=== PATIENT | male | born 1955 | race Caucasian/White ===

== ENCOUNTER → 2017-03-13 | Outpatient (CLI) | payer OTHER ==
[~2017-03-13] MED LIST: B-121000 MC2; Bactrim Ds Tab1 EACH PO; CEPH500 PO; ERGO400; Fiber Tabs625 MG PO; Multiple Vitam1 EAC1; POLY500; VANCOMYCIN IV; VANCOMYCIN1.5 GM/250 IV; [UNRECOGNIZED DRUG - REMARK]; [UNRECOGNIZED DRUG - SUPPLY]
[2017-03-13 09:11] LABS: BASOPHILS ABSOLUTE AUTO 0.05 K/mm3 (0.00-0.23); BASOPHILS PERCENT AUTO 1 % (0-2); EOSINOPHILS PERCENT AUTO 4 % (0-6); Hematocrit 43.7 % (37.0-53.0); Hemoglobin 15.1 g/dL (13.5-17.5); IMMATURE GRAN ABSOLUTE AUTO 0.03 K/mm3 (0.00-0.10); IMMATURE GRAN PERCENT AUTO 0 % (0-1); LYMPHOCYTES ABSOLUTE AUTO 0.92 K/mm3 (0.84-5.20); LYMPHOCYTES PERCENT AUTO 13 % (21-46); MONOCYTES ABSOLUTE AUTO 0.54 K/mm3 (0.16-1.47); MONOCYTES PERCENT AUTO 8 % (4-13); Mean Corpuscular HGB 31.5 pg (26.0-34.0); Mean Corpuscular HGB Conc 34.6 g/dL (31.5-36.5); Mean Corpuscular Volume 91 fL (80-100); NEUTROPHILS ABSOLUTE AUTO 5.24 K/mm3 (1.96-9.15); NEUTROPHILS PERCENT AUTO 74 % (41-73); Platelet Count 184 K/mm3 (150-400); RDW Coefficient Variation 12.4 % (11.7-14.2); RDW Standard Deviation 40.7 fL (35.1-46.3); Red Blood Cell Count 4.79 M/mm3 (4.30-5.90); White Blood Cell Count 7.08 K/mm3 (4.00-11.30)
[2017-03-13 09:20] LABS: Alanine Aminotransfer (ALT/SGP 25 U/L (12-78); Albumin, Blood 3.7 g/dL (3.4-5.0); Albumin/Globulin Ratio 1.2 (0.8-1.8); Alk Phos 127 U/L (40-126); Anion Gap 9 mmol/L (6-16); Aspartate Aminotrans (AST/SGOT 18 U/L (12-37); Bilirubin, Total 0.6 mg/dL (0.1-1.0); Blood Urea Nitrogen 12 mg/dL (8-24); Bun/Creatinine Ratio 12.1 (12.0-20.0); CO2, Blood 25 mmol/L (21-32); Calcium, Blood 8.6 mg/dL (8.5-10.1); Chloride, Blood 107 mmol/L (98-108); Creatinine, Blood 0.99 mg/dL (0.60-1.20); Globulin, Blood 3.1 g/dL (2.2-4.0); Glomerular Filtration Rate >60 (60-); Glucose, Blood 116 mg/dL (70-99); Sodium, Blood 141 mmol/L (136-145); Total Protein, Blood 6.8 g/dL (6.4-8.2)
== END ==
LOC: LAB EV 09:05
PROVIDERS: Physician Assistant
DX: R10.9 Unspecified abdominal pain (principal)
CPT/HCPCS: 80053; 83690; 85025

== ENCOUNTER → 2018-06-29 | Outpatient (CLI) | payer OTHER ==
[2018-06-29 15:57] LABS: BASOPHILS ABSOLUTE AUTO 0.05 K/mm3 (0.00-0.23); BASOPHILS PERCENT AUTO 1 % (0-2); EOSINOPHILS PERCENT AUTO 4 % (0-6); Hematocrit 41.2 % (37.0-53.0); Hemoglobin 14.1 g/dL (13.5-17.5); IMMATURE GRAN ABSOLUTE AUTO 0.03 K/mm3 (0.00-0.10); IMMATURE GRAN PERCENT AUTO 0 % (0-1); LYMPHOCYTES PERCENT AUTO 12 % (21-46); MONOCYTES ABSOLUTE AUTO 0.62 K/mm3 (0.16-1.47); MONOCYTES PERCENT AUTO 8 % (4-13); Mean Corpuscular HGB 30.6 pg (26.0-34.0); Mean Corpuscular HGB Conc 34.2 g/dL (31.5-36.5); Mean Corpuscular Volume 89 fL (80-100); Mean Platelet Volume 9.7 fL (9.1-12.4); NEUTROPHILS ABSOLUTE AUTO 5.57 K/mm3 (1.96-9.15); NEUTROPHILS PERCENT AUTO 75 % (41-73); Platelet Count 187 K/mm3 (150-400); RDW Coefficient Variation 12.8 % (11.7-14.2); RDW Standard Deviation 41.8 fL (35.1-46.3); Red Blood Cell Count 4.61 M/mm3 (4.30-5.90); White Blood Cell Count 7.47 K/mm3 (4.00-11.30)
[2018-06-29 16:08] LABS: Alanine Aminotransfer (ALT/SGP 23 U/L (12-78); Albumin, Blood 3.5 g/dL (3.4-5.0); Alk Phos 149 U/L (40-126); Anion Gap 8 mmol/L (6-16); Aspartate Aminotrans (AST/SGOT 18 U/L (12-37); Bilirubin, Total 0.6 mg/dL (0.1-1.0); Blood Urea Nitrogen 11 mg/dL (8-24); Bun/Creatinine Ratio 10.9 (12.0-20.0); CO2, Blood 26 mmol/L (21-32); Calcium, Blood 7.8 mg/dL (8.5-10.1); Chloride, Blood 106 mmol/L (98-108); Creatinine, Blood 1.01 mg/dL (0.60-1.20); Globulin, Blood 3.5 g/dL (2.2-4.0); Glomerular Filtration Rate >60 (60-); Glucose, Blood 127 mg/dL (70-99); Potassium, Blood 3.7 mmol/L (3.5-5.5); Sodium, Blood 140 mmol/L (136-145)
== END | disposition home or self-care (01) ==
LOC: LAB EV 15:53 → LAB SHORT 15:53
PROVIDERS: Physician Assistant
DX: D86.9 Sarcoidosis, unspecified (principal)
CPT/HCPCS: 80053; 85025; 85651

== ENCOUNTER 2018-08-21 13:22 | Emergency (ER) | payer OTHER ==
[~2018-08-21] VITALS: Ht 177.8 cm; Wt 104.3 kg
[2018-08-21 15:10] LABS: Alanine Aminotransfer (ALT/SGP 23 U/L (12-78); Albumin, Blood 3.7 g/dL (3.4-5.0); Albumin/Globulin Ratio 1.3 (0.8-1.8); Alk Phos 105 U/L (50-136); Anion Gap 7 mmol/L (6-16); Aspartate Aminotrans (AST/SGOT 21 U/L (12-37); Bilirubin, Total 0.9 mg/dL (0.1-1.0); Blood Urea Nitrogen 23 mg/dL (8-24); CO2, Blood 22 mmol/L (21-32); Calcium, Blood 8.2 mg/dL (8.5-10.1); Chloride, Blood 109 mmol/L (98-108); Creatinine, Blood 1.15 mg/dL (0.60-1.20); Globulin, Blood 2.9 g/dL (2.2-4.0); Glomerular Filtration Rate >60 (60-); Glucose, Blood 116 mg/dL (70-99); Potassium, Blood 3.9 mmol/L (3.5-5.5); Sodium, Blood 138 mmol/L (136-145); Total Protein, Blood 6.6 g/dL (6.4-8.2)
[2018-08-21 15:21] LABS: BASOPHILS ABSOLUTE AUTO 0.04 K/mm3 (0.00-0.23); BASOPHILS PERCENT AUTO 1 % (0-2); EOSINOPHILS ABSOLUTE AUTO 0.01 K/mm3 (0.00-0.68); EOSINOPHILS PERCENT AUTO 0 % (0-6); Hematocrit 43.2 % (37.0-53.0); Hemoglobin 14.4 g/dL (13.5-17.5); IMMATURE GRAN ABSOLUTE AUTO 0.03 K/mm3 (0.00-0.10); IMMATURE GRAN PERCENT AUTO 0 % (0-1); LYMPHOCYTES ABSOLUTE AUTO 0.48 K/mm3 (0.84-5.20); LYMPHOCYTES PERCENT AUTO 6 % (21-46); MONOCYTES ABSOLUTE AUTO 1.11 K/mm3 (0.16-1.47); MONOCYTES PERCENT AUTO 13 % (4-13); Mean Corpuscular HGB 30.3 pg (26.0-34.0); Mean Corpuscular HGB Conc 33.3 g/dL (31.5-36.5); Mean Corpuscular Volume 91 fL (80-100); NEUTROPHILS ABSOLUTE AUTO 6.96 K/mm3 (1.96-9.15); NEUTROPHILS PERCENT AUTO 81 % (41-73); Platelet Count 144 K/mm3 (150-400); RDW Standard Deviation 43.4 fL (35.1-46.3); Red Blood Cell Count 4.76 M/mm3 (4.30-5.90); White Blood Cell Count 8.63 K/mm3 (4.00-11.30)
[2018-08-21] MEDS ORDERED: Augmentin 875-1 EACH PO (16:27)
[2018-08-21] MEDS ORDERED: Prednisone20 MG PO (16:27)
[2018-08-21] MEDS ORDERED: Nasonex17 GM (16:27)
[2018-08-21] MEDS ORDERED: ONDA4ODT MM (16:31)
== END 2018-08-21 17:30 | disposition home or self-care (01) ==
LOC: ER 13:22
PROVIDERS: Physician Assistant
DX: J32.9 Chronic sinusitis, unspecified (principal); D86.9 Sarcoidosis, unspecified
CPT/HCPCS: 36415; 71046; 80053; 85025; 93005; 93010; 96361; 96374; 96375; 99284-25; J2405; J2930; J7030

== ENCOUNTER → 2018-11-05 | Outpatient (CLI) | payer OTHER ==
[~2018-11-05] MED LIST changes: +Augmentin 875-1 EACH PO; +Nasonex17 GM; +ONDA4ODT MM; +Prednisone20 MG PO
[2018-11-05 18:56] LABS: BASOPHILS ABSOLUTE AUTO 0.05 K/mm3 (0.00-0.23); BASOPHILS PERCENT AUTO 1 % (0-2); EOSINOPHILS PERCENT AUTO 2 % (0-6); Hematocrit 36.6 % (37.0-53.0); Hemoglobin 12.5 g/dL (13.5-17.5); IMMATURE GRAN ABSOLUTE AUTO 0.04 K/mm3 (0.00-0.10); IMMATURE GRAN PERCENT AUTO 0 % (0-1); LYMPHOCYTES ABSOLUTE AUTO 0.73 K/mm3 (0.84-5.20); LYMPHOCYTES PERCENT AUTO 7 % (21-46); MONOCYTES ABSOLUTE AUTO 0.68 K/mm3 (0.16-1.47); MONOCYTES PERCENT AUTO 7 % (4-13); Mean Corpuscular HGB 30.6 pg (26.0-34.0); Mean Corpuscular HGB Conc 34.2 g/dL (31.5-36.5); Mean Corpuscular Volume 90 fL (80-100); Mean Platelet Volume 9.8 fL (9.1-12.4); NEUTROPHILS ABSOLUTE AUTO 8.69 K/mm3 (1.96-9.15); NEUTROPHILS PERCENT AUTO 84 % (41-73); Platelet Count 235 K/mm3 (150-400); RDW Coefficient Variation 13.3 % (11.7-14.2); RDW Standard Deviation 43.6 fL (35.1-46.3); Red Blood Cell Count 4.09 M/mm3 (4.30-5.90); White Blood Cell Count 10.39 K/mm3 (4.00-11.30)
[2018-11-05 19:05] LABS: Alanine Aminotransfer (ALT/SGP 14 U/L (12-78); Albumin, Blood 3.6 g/dL (3.4-5.0); Alk Phos 113 U/L (40-126); Anion Gap 10 mmol/L (6-16); Aspartate Aminotrans (AST/SGOT 20 U/L (12-37); Bilirubin, Total 0.6 mg/dL (0.1-1.0); Blood Urea Nitrogen 17 mg/dL (8-24); Bun/Creatinine Ratio 16.8 (12.0-20.0); CO2, Blood 24 mmol/L (21-32); Calcium, Blood 8.4 mg/dL (8.5-10.1); Chloride, Blood 106 mmol/L (98-108); Creatinine, Blood 1.01 mg/dL (0.60-1.20); Globulin, Blood 3.6 g/dL (2.2-4.0); Glomerular Filtration Rate >60 (60-); Glucose, Blood 99 mg/dL (70-99); Potassium, Blood 3.7 mmol/L (3.5-5.5); Sodium, Blood 140 mmol/L (136-145); Total Protein, Blood 7.2 g/dL (6.4-8.2)
[2018-11-05 19:39] LABS: Thyroid Stimulating Hormone 1.234 uIU/mL (0.360-4.800)
== END | disposition home or self-care (01) ==
LOC: LAB EV 18:50 → LAB SHORT 18:50
PROVIDERS: Physician Assistant
DX: D86.0 Sarcoidosis of lung (principal); R50.9 Fever, unspecified; R53.83 Other fatigue
CPT/HCPCS: 80053; 82550; 84443; 85025; 85651; 87040

== ENCOUNTER 2019-08-02 17:07 | Emergency (ER) | payer OTHER ==
[~2019-08-02] VITALS: Ht 172.7 cm; Wt 104.3 kg
[2019-08-02 18:48] LABS: BASOPHILS ABSOLUTE AUTO 0.03 K/mm3 (0.00-0.23); BASOPHILS PERCENT AUTO 0 % (0-2); EOSINOPHILS ABSOLUTE AUTO 0.05 K/mm3 (0.00-0.68); EOSINOPHILS PERCENT AUTO 1 % (0-6); IMMATURE GRAN ABSOLUTE AUTO 0.04 K/mm3 (0.00-0.10); IMMATURE GRAN PERCENT AUTO 0 % (0-1); LYMPHOCYTES ABSOLUTE AUTO 0.68 K/mm3 (0.84-5.20); LYMPHOCYTES PERCENT AUTO 6 % (21-46); MONOCYTES ABSOLUTE AUTO 0.64 K/mm3 (0.16-1.47); MONOCYTES PERCENT AUTO 6 % (4-13); Mean Corpuscular HGB 31.3 pg (26.0-34.0); Mean Corpuscular HGB Conc 32.5 g/dL (31.5-36.5); Mean Corpuscular Volume 96 fL (80-100); Mean Platelet Volume 9.3 fL (9.1-12.4); NEUTROPHILS ABSOLUTE AUTO 9.21 K/mm3 (1.96-9.15); NEUTROPHILS PERCENT AUTO 86 % (41-73); Platelet Count 226 K/mm3 (150-400); RDW Coefficient Variation 14.6 % (11.7-14.2); RDW Standard Deviation 51.7 fL (35.1-46.3); Red Blood Cell Count 4.16 M/mm3 (4.30-5.90); White Blood Cell Count 10.65 K/mm3 (4.00-11.30)
[2019-08-02 19:09] LABS: Albumin, Blood 3.5 g/dL (3.4-5.0); Albumin/Globulin Ratio 0.9 (0.8-1.8); Bilirubin, Total 1.1 mg/dL (0.1-1.0); Bun/Creatinine Ratio 12.8 (12.0-20.0); Calcium, Blood 8.6 mg/dL (8.5-10.1); Creatinine, Blood 1.41 mg/dL (0.60-1.20); Potassium, Blood 3.9 mmol/L (3.5-5.5); Total Protein, Blood 7.5 g/dL (6.4-8.2)
[2019-08-02] MEDS ORDERED: FOLI1 PO (19:24)
[2019-08-02] MEDS ORDERED: Methotrexate2.5 MG (19:25)
== END 2019-08-02 21:05 | disposition home or self-care (01) ==
LOC: ER 17:07
PROVIDERS: Emergency Medicine
DX: N13.2 Hydronephrosis with renal and ureteral calculous obstruction (principal); Z88.8 Allergy status to other drugs, medicaments and biological substances; Z88.2 Allergy status to sulfonamides; Z79.899 Other long term (current) drug therapy
CPT/HCPCS: 74176; 80053; 83690; 85025; 93005; 93010; 96374; 96375; 99284-25; A9270; J2405; J3010

== ENCOUNTER → 2021-01-13 | Outpatient (CLI) | payer MEDICARE, OTHER ==
[~2021-01-13] MED LIST changes: +FOLI1 PO; +Methotrexate2.5 MG
[2021-01-13 15:10] LABS: Bun/Creatinine Ratio 8.3 (12.0-20.0); Calcium, Blood 8.8 mg/dL (8.5-10.1); Creatinine, Blood 1.57 mg/dL (0.60-1.20)
== END | disposition home or self-care (01) ==
LOC: LAB SHORT 15:00 → LAB 15:00
PROVIDERS: Physician Assistant
DX: K59.00 Constipation, unspecified (principal)
CPT/HCPCS: 80048

== ENCOUNTER 2021-01-14 08:25 | Emergency (ER) | payer MEDICARE, OTHER ==
[~2021-01-14] VITALS: Ht 180.3 cm; Wt 98.6 kg
[2021-01-14 10:06] LABS: BASOPHILS ABSOLUTE AUTO 0.05 K/mm3 (0.00-0.23); BASOPHILS PERCENT AUTO 1 % (0-2); EOSINOPHILS ABSOLUTE AUTO 0.02 K/mm3 (0.00-0.68); EOSINOPHILS PERCENT AUTO 0 % (0-6); Hematocrit 40.9 % (37.0-53.0); Hemoglobin 13.6 g/dL (13.5-17.5); IMMATURE GRAN ABSOLUTE AUTO 0.06 K/mm3 (0.00-0.10); IMMATURE GRAN PERCENT AUTO 1 % (0-1); LYMPHOCYTES ABSOLUTE AUTO 0.64 K/mm3 (0.84-5.20); LYMPHOCYTES PERCENT AUTO 9 % (21-46); MONOCYTES ABSOLUTE AUTO 1.16 K/mm3 (0.16-1.47); MONOCYTES PERCENT AUTO 17 % (4-13); Mean Corpuscular HGB 32.4 pg (26.0-34.0); Mean Corpuscular HGB Conc 33.3 g/dL (31.5-36.5); Mean Corpuscular Volume 97 fL (80-100); Mean Platelet Volume 10.1 fL (9.1-12.4); NEUTROPHILS ABSOLUTE AUTO 5.02 K/mm3 (1.96-9.15); NEUTROPHILS PERCENT AUTO 72 % (41-73); Platelet Count 183 K/mm3 (150-400); RDW Coefficient Variation 13.5 % (11.7-14.2); RDW Standard Deviation 47.2 fL (35.1-46.3); White Blood Cell Count 6.95 K/mm3 (4.00-11.30)
[2021-01-14 10:31] LABS: Albumin, Blood 3.6 g/dL (3.4-5.0); Bilirubin, Total 0.9 mg/dL (0.1-1.0); Calcium, Blood 8.8 mg/dL (8.5-10.1); Creatinine, Blood 1.54 mg/dL (0.60-1.20); Globulin, Blood 3.5 g/dL (2.2-4.0); Potassium, Blood 3.9 mmol/L (3.5-5.5); Total Protein, Blood 7.1 g/dL (6.4-8.2)
[2021-01-14 10:34] LABS: Source, Urine Clean Catch
[2021-01-14 10:41] LABS: Bilirubin, Urine Neg (Neg); Blood, Urine 3+ (Neg); Glucose Qualitative, Urine Neg (Neg); Ketones, Urine Neg (Neg); Leukocyte Esterase, Urine 1+ (Neg); Nitrite, Urine Neg (Neg); Protein, Urine 2+ (Neg); Specific Gravity, Urine 1.025 (1.003-1.022); Urobilinogen, Urine NORM (Normal)
[2021-01-14 10:50] LABS: Appearance, Urine Hazy (Clear); Color, Urine Yellow (P-Yellow)
[2021-01-14 10:52] LABS: Bacteria Few /hpf; Calcium Oxalate Crystals Few /hpf; Squamous Epithelial Cells Rare /hpf (Few)
[2021-01-14 13:19] LABS: Influenza A, PCR NEGATIVE (NEGATIVE); Influenza B, PCR NEGATIVE (NEGATIVE); Resp Syncytial Virus, PCR NEGATIVE (NEGATIVE); SARS-Cov-2 (COVID-19) PCR, MMC NEGATIVE (NEGATIVE)
== END 2021-01-14 14:30 | disposition home or self-care (01) ==
LOC: ER 08:25
PROVIDERS: Physician Assistant
DX: N13.6 Pyonephrosis (principal); Z88.8 Allergy status to other drugs, medicaments and biological substances; Z88.2 Allergy status to sulfonamides; Z79.899 Other long term (current) drug therapy
CPT/HCPCS: 0241U; 36415; 80053; 81001; 83605; 83690; 85025; 87086; 96365; 96375; 99285-25; A9270; J0696; J2270; J7030

== ENCOUNTER 2022-09-21 20:08 | Inpatient (IN) | payer MEDICARE, OTHER ==
[~2022-09-21] VITALS: Ht 172.7 cm; Wt 96.0 kg
[2022-09-21 21:13] LABS: Albumin, Blood 3.3 g/dL (3.4-5.0); Bilirubin, Total 0.8 mg/dL (0.1-1.0); Bun/Creatinine Ratio 12.5 (12.0-20.0); Calcium, Blood 8.3 mg/dL (8.5-10.1); Creatinine, Blood 1.28 mg/dL (0.60-1.20); Globulin, Blood 3.2 g/dL (2.2-4.0); Magnesium, Blood 1.6 mg/dL (1.6-2.4); Potassium, Blood 3.8 mmol/L (3.5-5.5); Total Protein, Blood 6.5 g/dL (6.4-8.2)
[2022-09-21 21:38] LABS: BASOPHILS ABSOLUTE AUTO 0.06 K/mm3 (0.00-0.23); BASOPHILS PERCENT AUTO 1 % (0-2); EOSINOPHILS PERCENT AUTO 2 % (0-6); Hematocrit 39.6 % (37.0-53.0); Hemoglobin 13.7 g/dL (13.5-17.5); IMMATURE GRAN ABSOLUTE AUTO 0.05 K/mm3 (0.00-0.10); IMMATURE GRAN PERCENT AUTO 1 % (0-1); LYMPHOCYTES ABSOLUTE AUTO 0.76 K/mm3 (0.84-5.20); LYMPHOCYTES PERCENT AUTO 14 % (21-46); MONOCYTES ABSOLUTE AUTO 0.86 K/mm3 (0.16-1.47); MONOCYTES PERCENT AUTO 16 % (4-13); Mean Corpuscular HGB 32.3 pg (26.0-34.0); Mean Corpuscular HGB Conc 34.6 g/dL (31.5-36.5); Mean Corpuscular Volume 93 fL (80-100); Mean Platelet Volume 9.7 fL (9.1-12.4); NEUTROPHILS ABSOLUTE AUTO 3.43 K/mm3 (1.96-9.15); NEUTROPHILS PERCENT AUTO 65 % (41-73); Platelet Count 189 K/mm3 (150-400); RDW Coefficient Variation 13.3 % (11.7-14.2); RDW Standard Deviation 44.6 fL (35.1-46.3); Red Blood Cell Count 4.24 M/mm3 (4.30-5.90); White Blood Cell Count 5.26 K/mm3 (4.00-11.30)
[2022-09-22] VITALS (7 sets, daily range): BP systolic 117–147; BP diastolic 68–91
[2022-09-22 00:28] LABS: Source, Urine Clean Catch
[2022-09-22 00:32] LABS: Bilirubin, Urine Neg (Neg); Blood, Urine 1+ (Neg); Glucose Qualitative, Urine Neg (Neg); Ketones, Urine Neg (Neg); Leukocyte Esterase, Urine Neg (Neg); Nitrite, Urine Neg (Neg); Protein, Urine Neg (Neg); Urobilinogen, Urine NORM (Normal)
[2022-09-22 00:39] LABS: Appearance, Urine Clear (Clear); Color, Urine Yellow (P-Yellow)
[2022-09-22 00:41] LABS: Bacteria Not Seen /hpf; Red Blood Cells, Urine 0-2 /hpf (0-2); Squamous Epithelial Cells Not Seen /hpf (Few); White Blood Cells, Urine Not Seen /hpf (0-5)
[2022-09-22 00:58] LABS: Base Excess Venous 0.7 mmol/L; PCO2 Venous 39.1 mmHg (38-42); pH Blood Venous 7.42 (7.34-7.37)
[2022-09-22 01:28] LABS: Influenza A, PCR NEGATIVE (NEGATIVE); Influenza B, PCR NEGATIVE (NEGATIVE); Resp Syncytial Virus, PCR NEGATIVE (NEGATIVE); SARS-Cov-2 (COVID-19) PCR, MMC NEGATIVE (NEGATIVE)
[2022-09-22] MEDS ORDERED: METHOTREXATE2.510 PO (02:46)
[2022-09-22 03:45] LABS: Hematocrit 38.6 % (37.0-53.0); Hemoglobin 13.3 g/dL (13.5-17.5); Mean Corpuscular HGB 32.2 pg (26.0-34.0); Mean Corpuscular HGB Conc 34.5 g/dL (31.5-36.5); Mean Corpuscular Volume 94 fL (80-100); Mean Platelet Volume 9.5 fL (9.1-12.4); Platelet Count 173 K/mm3 (150-400); RDW Coefficient Variation 13.2 % (11.7-14.2); RDW Standard Deviation 44.9 fL (35.1-46.3); Red Blood Cell Count 4.13 M/mm3 (4.30-5.90); White Blood Cell Count 6.44 K/mm3 (4.00-11.30)
--- NOTE | 2022-09-22 04:00 | NUR ---
ADMIT NOTE; PT ARRIVES FROM THE ED VIA GURNEY. THE PT IS TRANSFERED FROM THE GURNEY TO THE HOSPITAL BED VIA SLIDER SHEET. THE PT IS AXO X2-3, CONFUSED AND IS IRRITABLE EASILY. THE PT IS ON 2L NC, DENIES ANY SOB. THE PT DENIES ANY ACUTE NEEDS UPON ADMIT. THE PT IS CURRENTLY LAYING IN BED WITH THE BED IN THE LOWEST POSITION AND THE CALL LIGHT AT BEDSIDE.
[2022-09-22 04:01] LABS: Bun/Creatinine Ratio 11.5 (12.0-20.0); Calcium, Blood 8.1 mg/dL (8.5-10.1); Creatinine, Blood 1.31 mg/dL (0.60-1.20); Potassium, Blood 3.5 mmol/L (3.5-5.5)
--- NOTE | 2022-09-22 05:55 | NUR ---
SHIFT SUMMARY; NO ACUTE CHANGES SINCE ADMIT. THE PT IS AXO X2-3 AND HAS RIPPED OUT AN IV. THE PT IS CONFUSED TO WHERE HES AT OR WHAT IS GOING ON. THE PT HAS ATTEMPTED TO GET OUT OF BED. THE PT IS SOMEWHAT REDIRECTABLE. THE PT HAS 2L NC WITH O2 SATS >92%. THE PT DENIES ANY SOB, CHEST PAIN/PRESSURE, N/V OR PAIN. CURRENTLY THE PT IS LAYING IN BED WITH THE BED IN THE LOWEST POSITION AND THE CALL LIGHT AT BEDSIDE. FIRE EDUCATION PROVIDED, RISK ASSESSED. THE PT DENIES HAVING ANY POSSIBLE FLAMMABLE AND OR IGNITION SOURCES IN POSSESSION.
[2022-09-22] MEDS ORDERED: METTREX2.5 PO (10:02)
[2022-09-22] MEDS ORDERED: SIMPONI AR50 MG/4 M1 IV (10:05)
--- NOTE | 2022-09-22 12:35 | NUR ---
"Spiritual Care Visit | Pts. Family request Pt. is awake in bed and welcomes my visit. Pt. displays some level of confusion but does recognize this neck skewer. Pt. displays evidence of somnolence so the visit is kept short. Prayed with Pt. Pt. verbalized gratitude for the spiritual care visit."
--- NOTE | 2022-09-22 19:52 | NUR ---
SHIFT SUMMARY PATIENT WITH FEVERS TODAY INTERMITTENT, LOWERS TO NORMAL TEMP WITH TYLENOL. PATIENT DOES NOT CALL, HE TRIES TO GET OUT OF BED ON HIS OWN, ORIENTED TO SELF. AT BEDSIDE INTERMITTENTLY. BED ALARM ON, BED IN LOW POSITION. PATIENT 2 PERSON ASSIST TO BEDSIDE COMMODE.
--- NOTE | 2022-09-22 20:06 | NUR ---
MD CALL DR CHAWLA CALLED AND NOTIFIED OF RECENT SHIVERS/RIGORS AND FEVER. RECENT TYLENOL GIVEN WITH SYMPTOMS IMPROVED. NOTIFIED THAT R.T. RECENTLY INCREASED O2 TO 5L N/C. TELEPHONE ORDER FOR HOME CPAP.
[2022-09-23 03:26] VITALS: BP 130/93
--- NOTE | 2022-09-23 04:33 | NUR ---
SHIFT SUMMARY MR VALDEZ HAD SHIVERS AND LOW GRADE FEVER AT THE BEGINNING OF THE SHIFT AND THEN AGAIN THIS AM, NO FEVER YET BUT SHIVERS AGAIN AND TYLENOL GIVEN. IVF WERE STOPPED ~4AM AFTER 24HRS OF IVF COMPLETED. ORIENTATED TO SELF ONLY BUT ABLE TO FOLLOW DIRECTIONS APPROPRIATELY. BED ALARM ON, BED LOW, CALL LIGHT IN REACH. TURNED AND REPOSITIONED WITH 2 STAFF, INCONTINENT OF URINE OVERNIGHT.
--- NOTE | 2022-09-23 05:25 | NUR ---
MD CALL DR SALGADO NOTIFIED OF PT WITH PROFUSE SHIVERING/RIGORS AND FEVER 100.0 ORAL. IBUPROFEN ONCE TIME DOSE ORDERED BY DR SALGADO.
--- NOTE | 2022-09-23 06:08 | NUR ---
RN NOTE PT HAD ONE EPISODE OF EMESIS BEFORE TAKING IBUPROFEN. NOW SHIVERS HAVE STOPPED AND HE LOOKS MORE COMFORTABLE.
[2022-09-23 07:57] VITALS: BP 117/66
--- NOTE | 2022-09-23 08:00 | NUR ---
PT PLEASNT COOP A/O X2 FAMILY AND SELF. SOME TALKATIVE, BUT SLOW TO RESPOND. DENIES PAIN, WIFESTATES HE HAS BEEN LIKE THIS LAST COUPLE DAYS. H/R RE,G NO MURMUR NOTED. NO TELE. +2 EDEMA LEGS. LUNGS CRACKLES LOW LEFT. BALDNCE CLEAR, RESP EASY, UNLABORED ON 3L O2. PT STATES FEELS SWEATY. TEMP BACK DOWN TO 99.0. ORAL. BT X4 LAST BM LAT NOTE PER PT. VOIDS URINAL. CONTINUE TO MONITOR. BED IN LOW POSITION, CALL LITE IN REACH, BED ALARNM ON FOR SAFETY
[2022-09-23 08:28] LABS: BASOPHILS ABSOLUTE AUTO 0.06 K/mm3 (0.00-0.23); BASOPHILS PERCENT AUTO 1 % (0-2); EOSINOPHILS ABSOLUTE AUTO 0.03 K/mm3 (0.00-0.68); EOSINOPHILS PERCENT AUTO 0 % (0-6); Hematocrit 35.9 % (37.0-53.0); Hemoglobin 12.4 g/dL (13.5-17.5); IMMATURE GRAN ABSOLUTE AUTO 0.04 K/mm3 (0.00-0.10); IMMATURE GRAN PERCENT AUTO 1 % (0-1); LYMPHOCYTES ABSOLUTE AUTO 0.38 K/mm3 (0.84-5.20); LYMPHOCYTES PERCENT AUTO 5 % (21-46); MONOCYTES ABSOLUTE AUTO 0.99 K/mm3 (0.16-1.47); MONOCYTES PERCENT AUTO 14 % (4-13); Mean Corpuscular HGB Conc 34.5 g/dL (31.5-36.5); Mean Corpuscular Volume 93 fL (80-100); Mean Platelet Volume 9.3 fL (9.1-12.4); NEUTROPHILS ABSOLUTE AUTO 5.77 K/mm3 (1.96-9.15); NEUTROPHILS PERCENT AUTO 79 % (41-73); Platelet Count 151 K/mm3 (150-400); RDW Coefficient Variation 13.2 % (11.7-14.2); RDW Standard Deviation 44.7 fL (35.1-46.3); Red Blood Cell Count 3.87 M/mm3 (4.30-5.90); White Blood Cell Count 7.27 K/mm3 (4.00-11.30)
[2022-09-23 08:39] LABS: Calcium, Blood 7.6 mg/dL (8.5-10.1); Creatinine, Blood 1.23 mg/dL (0.60-1.20); Potassium, Blood 3.4 mmol/L (3.5-5.5)
[2022-09-23 15:30] VITALS: BP 116/69
[2022-09-23 19:45] VITALS: BP 106/81
--- NOTE | 2022-09-23 19:51 | NUR ---
1700 PT TEMP ORAL 97.3 HAVING SHAKES AGAIN. CHECKED TEMPORAL 98.0. PT DRY. HANDS COLD TO TOUCH. LEGS COOL. BACK WRM, DRY. CALLED DR FOX. REPORT GIVEN. NO NEW ODRDERS. WATCH. 1800 TEMP 98.7 ORAL. PT SHAKES SOME BETTER. FOLLOW
--- NOTE | 2022-09-23 19:54 | NUR ---
PT HAD NO SHAKES THIS DAY UNTIL ABOUT 1700. TEMP DOWN TO 97.[address] FOX. NO NEW ORDERS. WARMED PT WITH BLANKETS. WATCHING TO SEE IF TEMP GOES TOO HIGH. 1800 TEMP AT 98.7 ORAL. PT SPOUSE STATES HE HAS BEEN GETTING MORE CONFUSED OVER LAST 6 MONTH PLUS. NOT SURE IF WORSE IN PM OR NOT. PT DID GET TO FULL A/O X3 AND HAD GOOD DISCUSSION ABOUT HIS WORK TODAY. BED IN LOW POSITIOIN, CALL LITE IN REACH, BED ALARM ON FOR SAFETY
[2022-09-24 02:19] VITALS: BP 132/70
[2022-09-24 05:47] LABS: BASOPHILS ABSOLUTE AUTO 0.04 K/mm3 (0.00-0.23); BASOPHILS PERCENT AUTO 1 % (0-2); EOSINOPHILS ABSOLUTE AUTO 0.07 K/mm3 (0.00-0.68); EOSINOPHILS PERCENT AUTO 1 % (0-6); Hematocrit 40.2 % (37.0-53.0); Hemoglobin 13.9 g/dL (13.5-17.5); IMMATURE GRAN ABSOLUTE AUTO 0.03 K/mm3 (0.00-0.10); IMMATURE GRAN PERCENT AUTO 1 % (0-1); LYMPHOCYTES PERCENT AUTO 16 % (21-46); MONOCYTES ABSOLUTE AUTO 0.48 K/mm3 (0.16-1.47); MONOCYTES PERCENT AUTO 9 % (4-13); Mean Corpuscular HGB 32.2 pg (26.0-34.0); Mean Corpuscular HGB Conc 34.6 g/dL (31.5-36.5); Mean Corpuscular Volume 93 fL (80-100); Mean Platelet Volume 9.4 fL (9.1-12.4); NEUTROPHILS ABSOLUTE AUTO 3.99 K/mm3 (1.96-9.15); NEUTROPHILS PERCENT AUTO 73 % (41-73); Platelet Count 171 K/mm3 (150-400); RDW Coefficient Variation 13.2 % (11.7-14.2); RDW Standard Deviation 45.1 fL (35.1-46.3); Red Blood Cell Count 4.32 M/mm3 (4.30-5.90); White Blood Cell Count 5.51 K/mm3 (4.00-11.30)
[2022-09-24 06:19] LABS: Albumin, Blood 3.2 g/dL (3.4-5.0); Bilirubin, Total 0.6 mg/dL (0.1-1.0); Bun/Creatinine Ratio 15.3 (12.0-20.0); Calcium, Blood 8.5 mg/dL (8.5-10.1); Creatinine, Blood 1.24 mg/dL (0.60-1.20); Globulin, Blood 3.1 g/dL (2.2-4.0); Potassium, Blood 4.2 mmol/L (3.5-5.5); Total Protein, Blood 6.3 g/dL (6.4-8.2)
--- NOTE | 2022-09-24 06:30 | NUR ---
SHIFT SUMMARY PT SHIVERING AT BEGINNING OF SHIFT, THEN DEVELOPED A FEVER OF 102.9F (HOWEVER WHEN FEVER PRESENT, PT WAS NOT SHAKING OR SHIVERING) PRN TYLENOL GIVEN WITH POSITIVE EFFECT, BRINGING TEMP DOWN TO 99.2F. PT ONLY ORIENTED TO SELF AND GETTING PROGRESSIVELY MORE CONFUSED, PT HALLUCINATING AND SEEING ITEMS ON THE FLOOR TRYING TO PICK THEM UP, BUT NOTHING WAS THERE. PT WAS CALLING OUT FOR CUCA REPEATEDLY, BUT WAS EASILY REDIRECTED. PT FELL ASLEEP AROUND 1 HOUR LATER, ONLY GETTING UP TO VOID IN THE URINAL. PT STARTING SHAKING AGAIN AROUND 0500, PRN TYLENOL GIVEN THIS IS USUALLY A PRECURSOR TO HIS FEVERS. SHAKING STOPPED AFTER TYLENOL ADMIN Q1H FIRE SAFETY CHECKS COMPLETED, NO IGNITION SOURCES FOUND.
[2022-09-24 08:03] VITALS: BP 139/75
--- NOTE | 2022-09-24 09:52 | NUR ---
ABLE TO TURN DOWN O2 TO 2L N/C. MAINTAINING > 92%.
--- NOTE | 2022-09-24 11:23 | NUR ---
PT BEGINNING RIGORS AGAIN. TEMP 97.9 ORAL. ADMIN TYLENOL. CALLED DR ELLIS, ORDERS FOR BLOOD CULTURES. NO OTHER ORDERS. PT O2 SATS LOWER. INCREASED TO 3L TO KEEP >90%
[2022-09-24 15:12] VITALS: BP 137/76
--- NOTE | 2022-09-24 17:53 | NUR ---
PT MORE CONFUSED TODAY AGAIN. HAS BEEN REDIRECTABLE T/O DAY. JUST CAME INTO ROOM. WE TRANSFERRED TO RM 351 IN [place] HAS BEEN TRYING TO GET OUT OF BED MANY TIMES. BED ALARM ON FOR SAFTETY. MOVES SLOW. DOES GET MUCH MOR CONFUSED AT NITE. HAS BEEN COMPLAINING THAT WE TOOK HIM TO [email or web address] AND HE HAD TO SLEEP ON PLANKS BY THE [employer] LAST NITE. TRIED TO EXPLAIN IT WAS A DREAM OR HALLUCINATION, BUT HE SEEMS INSISTANT. CONTINUES TO BE ON 3L O2 TODAY. SATS > 93-94% T/O DAY. DR ADJUSTING ABX AND DID START IVF AT 50 TODAY. BED IN LOW POSITION, CALL LITE IN REACH, BED ALARM ON FOR SAFETY. REP0RT GIVEN TO LANEY OTERO.
[2022-09-24 19:30] VITALS: BP 129/73
[2022-09-25 01:58] VITALS: BP 141/85
--- NOTE | 2022-09-25 05:01 | NUR ---
END OF SHIFT SUMMARY PT RESTLESS THROUGHOUT THE SHIFT. PT A&O x2-3, VSS, AFEBRILE. PT ON 3L OF O2 VIA NC. PT TRANSFERED WITH 1P ASSIST TO THE BSC, GAIT UNSTEADY. R FA IV RUNNING NORMAL SALINE AT 50 mL/HR. PRN APAP GIVEN FOR LOWER BACK PAIN, WHICH WAS SOMEWHAT EFFECTIVE. PT ON CONTINUOUS PULSE OX MONITORING. PT BECAME CONFUSED, THOUGHT THAT HE WAS AT HOME AND WAS RE-DIRECTED SUCCESSFULLY. CALL LIGHT WITHIN REACH, WCTM.
[2022-09-25 06:00] LABS: BASOPHILS ABSOLUTE AUTO 0.05 K/mm3 (0.00-0.23); BASOPHILS PERCENT AUTO 1 % (0-2); EOSINOPHILS PERCENT AUTO 2 % (0-6); Hemoglobin 12.5 g/dL (13.5-17.5); IMMATURE GRAN ABSOLUTE AUTO 0.01 K/mm3 (0.00-0.10); IMMATURE GRAN PERCENT AUTO 0 % (0-1); LYMPHOCYTES ABSOLUTE AUTO 0.88 K/mm3 (0.84-5.20); LYMPHOCYTES PERCENT AUTO 20 % (21-46); MONOCYTES ABSOLUTE AUTO 0.45 K/mm3 (0.16-1.47); MONOCYTES PERCENT AUTO 10 % (4-13); Mean Corpuscular HGB 32.2 pg (26.0-34.0); Mean Corpuscular HGB Conc 34.7 g/dL (31.5-36.5); Mean Corpuscular Volume 93 fL (80-100); Mean Platelet Volume 9.4 fL (9.1-12.4); NEUTROPHILS PERCENT AUTO 66 % (41-73); Platelet Count 168 K/mm3 (150-400); RDW Coefficient Variation 13.1 % (11.7-14.2); RDW Standard Deviation 44.4 fL (35.1-46.3); Red Blood Cell Count 3.88 M/mm3 (4.30-5.90); White Blood Cell Count 4.39 K/mm3 (4.00-11.30)
[2022-09-25 06:19] LABS: Albumin, Blood 2.8 g/dL (3.4-5.0); Bilirubin, Total 0.8 mg/dL (0.1-1.0); Bun/Creatinine Ratio 11.9 (12.0-20.0); Creatinine, Blood 1.18 mg/dL (0.60-1.20); Globulin, Blood 2.8 g/dL (2.2-4.0); Magnesium, Blood 1.7 mg/dL (1.6-2.4); Phosphorus, Blood 2.6 mg/dL (2.5-4.9); Potassium, Blood 3.8 mmol/L (3.5-5.5); Total Protein, Blood 5.6 g/dL (6.4-8.2)
[2022-09-25 07:26] VITALS: BP 151/76
--- NOTE | 2022-09-25 11:04 | NUR ---
Pt. is awake in bed when he welcomes my visit. 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 Pt. verbalizes some his physical concerns (eg. congestion). Listen with empathy and a calming presence. Pt. displayed evidence of being aware and engaged. Pt. requested that this water resource engineer let his brother know that I had visited him. Prayed with Pt. Pt. verbalized gratitude for the spiritual care visit and welcomed this water resource engineer to return.
--- NOTE | 2022-09-25 16:35 | NUR ---
Spiritual Care follow up Pt. is awake in bed and welcomes my visit. Pt. displays evidence of much clearer thinkning and focus. Family members are present. Facilitate family life review with all present. During visit, Pt. displayed evidence of being restless and agitated. Pts. spouse informed the nurse. Pt. and family verbalized gratitude for the spiritual care visit.
--- NOTE | 2022-09-25 18:25 | NUR ---
SHIFT SUMMARY PT UP TO CHAIR FOR LUNCH TODAY. MINIMAL RESP DISTRESS UNTIL THIS AFTERNOON WHEN HE STARTED HAVING AUDIBLE WHEEZES, SATS DROPPING WHILE ON O2 AT 2L/M, TACHYPNEA. CHILLS AND SHAKES THIS AFTERNOON WELL. RT IN TO SEE PT. SATS IN THE 80'S ON 2L/M, O2 INCREASED TO 6L/M WITH MINIMAL CHANGE. HIGH FLOW AT 8L/M STARTED AND NEBULIZER GIVEN AND SATS STARTED TO COME UP AND MAINTAIN IN LOW 90'S. MD NOTIFIED OF CHANGE IN CONDITION. APPEARS MORE PARANOID AND CONFUSED THIS EVENING COMPARED TO THIS MORNING.
[2022-09-25 20:35] VITALS: BP 125/70
[2022-09-26 03:42] VITALS: BP 120/79
[2022-09-26 07:55] VITALS: BP 144/78
[2022-09-26 08:48] LABS: Adenovirus Not Detected (NOT DETECT); Coronavirus 229E Not Detected (NOT DETECT); Coronavirus HKU1 Not Detected (NOT DETECT); Coronavirus NL63 Not Detected (NOT DETECT); Coronavirus OC43 Not Detected (NOT DETECT); Human Metapneumovirus Not Detected (NOT DETECT); Human Rhinovirus/Enterovirus Not Detected (NOT DETECT); Influenza A/2009-H1 Not Detected (NOT DETECT); Influenza A/H1 Not Detected (NOT DETECT); Influenza A/H3 Not Detected (NOT DETECT); Influenza B Not Detected (NOT DETECT); Parainfluenza Virus 1 Not Detected (NOT DETECT); Parainfluenza Virus 2 Not Detected (NOT DETECT); Parainfluenza Virus 3 Not Detected (NOT DETECT); Parainfluenza Virus 4 Not Detected (NOT DETECT); Respiratory Syncytial Virus Not Detected (NOT DETECT); SARS-Cov-2 (COVID-19), BioFire Not Detected (NOT DETECT)
[2022-09-26 08:49] LABS: Bordetella pertussis Not Detected (NOT DETECT); Chlamydophila pneumoniae Not Detected (NOT DETECT); Mycoplasma pneumoniae Not Detected (NOT DETECT)
--- NOTE | 2022-09-26 11:09 | NUR ---
Pt. is awake and welcomes my visit. Pt. is pleasant and spouse is present. Spouse is a little unsettled by the timingof logistics for the Pt. to be sent to [facility]. Seek to normalize the Pt. experience. Pt. display evidence of engagement, but also display evidence of not understanding time of day. Facilitated life review and heard stories from both Pt. and Spouse. Prayed with Pt. Pt. verbalized gratitude for the spiritual care visit.
[2022-09-26 14:21] VITALS: BP 111/74
--- NOTE | 2022-09-26 18:15 | NUR ---
SHIFT SUMMARY PT UP IN CHAIR FOR BREAKFAST AND LUNCH. 1 PERSON ASSIST. AT BEDSIDE IN THE MORNING AND EVENING. NO RESP DISTRESS NOTED TODAY INCLUDING WITH ACTIVITY. O2 DROPPED TO 4L/M AND CONTINUOUS PULSE OX REMAINS LOW TO MID 90'S. CONDOM CATH IN PLACE. NEEDS CUING TO BRUSH HIS TEETH AND OTHER BASIC ACTIVITIES.
[2022-09-26 19:49] VITALS: BP 126/78
[2022-09-27 03:43] VITALS: BP 167/103
--- NOTE | 2022-09-27 04:13 | NUR ---
SHIFT SUMMARY PT AOX3-4 FORGETFUL AT TIMES. ONE EPISODE OF HALLUCINATIONS AFTER WAKING FROM A DEEP SLEEP. HR WAS ELEVATED WAS BP. PATIENT REORIENTED TO SITUATION AND BP AND HR DID COME DOWN. PATIENT ON 4L NC WITH SATS ABOVE 95%. C-PAP IS ON WHILE SLEEPING. CONDOM CATH DID COME OFF DURING PATIENTS EPISODE, NEW BRIEFS PLACED. PATIENT NOW SLEEPING WITH BED ALARM ON AND CALL LIGHT IN REACH.
[2022-09-27 05:52] LABS: Hematocrit 38.8 % (37.0-53.0); Hemoglobin 13.4 g/dL (13.5-17.5); Mean Corpuscular HGB 31.9 pg (26.0-34.0); Mean Corpuscular HGB Conc 34.5 g/dL (31.5-36.5); Mean Corpuscular Volume 92 fL (80-100); Mean Platelet Volume 9.8 fL (9.1-12.4); Platelet Count 208 K/mm3 (150-400); RDW Coefficient Variation 13.1 % (11.7-14.2); RDW Standard Deviation 43.5 fL (35.1-46.3); White Blood Cell Count 7.41 K/mm3 (4.00-11.30)
[2022-09-27 06:27] LABS: Albumin, Blood 2.9 g/dL (3.4-5.0); Albumin/Globulin Ratio 0.8 (0.8-1.8); Bilirubin, Total 0.4 mg/dL (0.1-1.0); Bun/Creatinine Ratio 18.9 (12.0-20.0); C-REACTIVE PROTEIN, EXT RANGE 10.8 mg/dL (0.000-0.300); Creatinine, Blood 1.11 mg/dL (0.60-1.20); Globulin, Blood 3.5 g/dL (2.2-4.0); Magnesium, Blood 2.1 mg/dL (1.6-2.4); Phosphorus, Blood 3.2 mg/dL (2.5-4.9); Potassium, Blood 4.1 mmol/L (3.5-5.5); Total Protein, Blood 6.4 g/dL (6.4-8.2)
[2022-09-27 06:31] LABS: BAND PERCENT MAN 1 % (0-8); BASOPHILS PERCENT MAN 0 % (0-2); EOSINOPHILS PERCENT MAN 0 % (0-6); LYMPHOCYTES ABSOLUTE MAN 0.22 K/mm3 (0.84-5.20); LYMPHOCYTES PERCENT MAN 3 % (21-46); MONOCYTES ABSOLUTE MAN 0.07 K/mm3 (0.16-1.47); MONOCYTES PERCENT MAN 1 % (4-13); NEUTROPHILS ABSOLUTE MAN 7.11 K/mm3 (1.96-9.15); SEG NEUTROPHILS PERCENT MAN 95 % (41-73); TOTAL CELLS COUNTED 100
[2022-09-27 07:35] VITALS: BP 148/95
--- NOTE | 2022-09-27 14:02 | NUR ---
Pt. is awake, sitting up in bed and eating lunch when he welcomes my visit. Pt. displays evidence of improvement although also displays moments of confusion. Listen with empathy and a calm presence. Facilitate life review that emphasizes on Pts. subjects of interest. Pt. is alone. Pt. displays evidence of concern for his 's health. Matters of brittney and belief are considered. Pt. verbalizes grattiude for the spiritual care visit.
[2022-09-27 16:19] VITALS: BP 114/76
--- NOTE | 2022-09-27 18:22 | NUR ---
SHIFT SUMMARY PT SAYING HE NEEDED TO ESCAPE THE LIGHTNING STRIKES AND THE GROUND MOVING AROUND BECAUSE GOD WAS TELLING HIM HE NEEDS TO FIX WHAT HE DID WRONG. HEART RATE IN THE 120'S DURING THIS EPISODE BUT WITH DIVERTING CONVERSATION TO OTHER TOPICS AND PT CALMED CONSIDERABLY BUT HEART RATE REMAINED IN 110'S-120'S. MD AWARE OF ELEVATED HEART RATE AND IT HAS COME DOWN SINCE MORNING FROM 90'S-110'S. SHOWER TAKEN. NO CHILLS OR SHAKES NOTED TODAY. UP IN CHAIR FOR DINNER. FIDDLING WITH CORDS BUT NOT REMOVING OR PULLING AT THEM. IN AND OUT OF ROOM THROUGH THE DAY.
[2022-09-27 20:30] VITALS: BP 143/71
[2022-09-28 04:22] VITALS: BP 144/92
--- NOTE | 2022-09-28 05:45 | NUR ---
SUMMARY- PT AAOX1 THIS SHIFT. X1 ASSIST W/GAIT BELT AND WALKER. PT IS STANDING AT THE EDGE OF THE BED THIS SHIFT AND USING THE URINAL W/HELP SUCCESSFULLY. PT HALLUCINATING AND TELLING STORIES THIS SHIFT THAT DO NOT MAKE ANY SENSE. PT WEARING HIS CPAP HS AND 2L HF WHEN NOT OF CPAP. PT TACHYCARDIC AT THE BEGINNING OF THE SHIFT, BUT HR=70 NOW. RN ENSURED FIRE SAFETY EVERY HOUR DURING ROUNDS.
[2022-09-28 07:39] VITALS: BP 123/74
[2022-09-28 08:29] LABS: BASOPHILS ABSOLUTE AUTO 0.02 K/mm3 (0.00-0.23); BASOPHILS PERCENT AUTO 0 % (0-2); EOSINOPHILS PERCENT AUTO 0 % (0-6); Hematocrit 38.9 % (37.0-53.0); Hemoglobin 13.1 g/dL (13.5-17.5); IMMATURE GRAN ABSOLUTE AUTO 0.11 K/mm3 (0.00-0.10); IMMATURE GRAN PERCENT AUTO 1 % (0-1); LYMPHOCYTES ABSOLUTE AUTO 0.63 K/mm3 (0.84-5.20); LYMPHOCYTES PERCENT AUTO 4 % (21-46); MONOCYTES ABSOLUTE AUTO 0.96 K/mm3 (0.16-1.47); MONOCYTES PERCENT AUTO 6 % (4-13); Mean Corpuscular HGB 31.7 pg (26.0-34.0); Mean Corpuscular HGB Conc 33.7 g/dL (31.5-36.5); Mean Corpuscular Volume 94 fL (80-100); Mean Platelet Volume 9.6 fL (9.1-12.4); NEUTROPHILS ABSOLUTE AUTO 13.98 K/mm3 (1.96-9.15); NEUTROPHILS PERCENT AUTO 89 % (41-73); Platelet Count 260 K/mm3 (150-400); RDW Coefficient Variation 13.5 % (11.7-14.2); RDW Standard Deviation 45.3 fL (35.1-46.3); Red Blood Cell Count 4.13 M/mm3 (4.30-5.90)
[2022-09-28 08:50] LABS: Albumin, Blood 3.1 g/dL (3.4-5.0); Bilirubin, Total 0.4 mg/dL (0.1-1.0); Bun/Creatinine Ratio 20.5 (12.0-20.0); Calcium, Blood 8.9 mg/dL (8.5-10.1); Creatinine, Blood 1.22 mg/dL (0.60-1.20); Globulin, Blood 3.1 g/dL (2.2-4.0); Potassium, Blood 4.3 mmol/L (3.5-5.5); Total Protein, Blood 6.2 g/dL (6.4-8.2)
--- NOTE | 2022-09-28 11:51 | NUR ---
Pt. is awake and sitting up in a chair, when he recognizes me "by name" and welcomes my visit. Pt. quickly begins to verbalize his own frustration with what he calls with his own words "dementia." Listen with empathy and a calming presence. Pt. displays evidence of being aware of his own confusion and having it be a source of anxiety. Offer words of comfort and familiarity. A mutual friend came to visit. Pt. instanly recognizes his friend. Facilitated pilar life review then prayed for the Pt. Pt. verbalized gratitude for the spiritual care visit. Will continue to be avilable.
[2022-09-28 15:53] VITALS: BP 128/73
--- NOTE | 2022-09-28 18:33 | NUR ---
SHIFT SUMMARY PATIENT WORKED WITH THERAPY TODAY. PATIENT ABLE TO AMBULATE IN THE FLYNN WITH THERAPY. PATIENT OOB MOST OF THE DAY AND AMBULATED TO THE BATHROOM WHEN NEEDED. PATIENT CONTINUES ON OXYGEN. PATIENT CONFUSED BUT INTERACTIVE. PATIENT MORE IRRITABLE THIS EVENING BUT EASILY REDIRECTABLE. DISCHARGE PLAN DISCUSSED WITH WITH PLAN TO GO TO REHAB. PATIENT DRIVING AND INDEPENDENT PRIOR TO THIS ADMISSION.
[2022-09-28 19:47] VITALS: BP 145/89
[2022-09-29 04:32] VITALS: BP 147/82
--- NOTE | 2022-09-29 05:16 | NUR ---
SHIFT SUMMARY 67 YR M ADMITTED ON 09/22/22 FOR FALL AT HOME. FULL CODE. PT WAS A&O AT BEGINNING OF THIS SHIFT WHEN HIS WAS AT BEDSIDE. AFTER SHE LEFT, PT BECAME INCREASINGLY CONFUSED. HE SPONTANEOUSLY ATTEMPTED TO GET OUT OF BED W/O CALLING FOR ASSISTANCE AND SET OFF THE BED ALARM. THIS APPEARED TO CONFUSE HIM. HE STATED THAT HE COULD NOT SLEEP WITH ALL THE NOISE SO IT WAS EXPLAINED TO HIM THAT THE BED ALARM WILL GO OFF IF HE GETS UP W/O CALLING FIRST. HE STATED THAT THE NOISE THAT WAS KEEPING HIM AWAKE WAS THE "SHELLS". HE APPEARED TO BE VERY CONFUSED AND HAD TO BE REMINDED WHERE HE WAS. HE BECAME AGITATED AT STAFF FOR ATTEMPTING TO REDIRECT HIM.
[2022-09-29 07:30] VITALS: BP 145/85
[2022-09-29 16:16] VITALS: BP 107/46
--- NOTE | 2022-09-29 18:23 | NUR ---
SHIFT SUMMARY PATIENT CONTINUES TO BE CONFUSED, IMPULSIVE AND EASILY AGITATED AT TIMES. PATIENT REDIRECTABLE AND EASILY DISTRACTED. PATIENT COOPERATIVE WITH CARE. PATIENT DISCHARGE PLAN IS TO GO TO REHAB. IN AND OUT. PATIENT ABLE TO WALK THE FLYNN WITH WALKER, GAIT BELT AND ASSISTANCE.
[2022-09-29 20:30] VITALS: BP 143/83
--- NOTE | 2022-09-30 03:46 | NUR ---
SHIFT SUMMARY NO ACUTE CHANGES THIS SHIFT. PT IS STILL CONFUSED BUT DID NOT ACT SPONTANEOUSLY THIS SHIFT. AFTER 2100 MEDS HE FELL ASLEEP AND HAS SLEPT FOR MOST OF THE NIGHT. HE WAS ASSISTED TO THE BEDSIDE COMMODE AFTER TELLING STAFF THAT HE NEEDED TO URINATE, BUT ALSO HAD AN INCONTINENT EPISODE.
[2022-09-30 05:38] LABS: BASOPHILS ABSOLUTE AUTO 0.01 K/mm3 (0.00-0.23); BASOPHILS PERCENT AUTO 0 % (0-2); EOSINOPHILS ABSOLUTE AUTO 0.08 K/mm3 (0.00-0.68); EOSINOPHILS PERCENT AUTO 1 % (0-6); Hematocrit 37.4 % (37.0-53.0); Hemoglobin 12.7 g/dL (13.5-17.5); IMMATURE GRAN ABSOLUTE AUTO 0.08 K/mm3 (0.00-0.10); IMMATURE GRAN PERCENT AUTO 1 % (0-1); LYMPHOCYTES ABSOLUTE AUTO 1.03 K/mm3 (0.84-5.20); LYMPHOCYTES PERCENT AUTO 11 % (21-46); MONOCYTES ABSOLUTE AUTO 0.89 K/mm3 (0.16-1.47); MONOCYTES PERCENT AUTO 10 % (4-13); Mean Corpuscular HGB 32.1 pg (26.0-34.0); Mean Corpuscular Volume 94 fL (80-100); Mean Platelet Volume 9.5 fL (9.1-12.4); NEUTROPHILS ABSOLUTE AUTO 6.93 K/mm3 (1.96-9.15); NEUTROPHILS PERCENT AUTO 77 % (41-73); Platelet Count 232 K/mm3 (150-400); RDW Coefficient Variation 13.6 % (11.7-14.2); Red Blood Cell Count 3.96 M/mm3 (4.30-5.90); White Blood Cell Count 9.02 K/mm3 (4.00-11.30)
[2022-09-30 06:13] VITALS: BP 128/84
[2022-09-30 06:24] LABS: Albumin, Blood 2.7 g/dL (3.4-5.0); Bilirubin, Total 0.5 mg/dL (0.1-1.0); Bun/Creatinine Ratio 22.5 (12.0-20.0); Calcium, Blood 8.1 mg/dL (8.5-10.1); Creatinine, Blood 1.29 mg/dL (0.60-1.20); Globulin, Blood 2.8 g/dL (2.2-4.0); Potassium, Blood 4.1 mmol/L (3.5-5.5); Total Protein, Blood 5.5 g/dL (6.4-8.2)
[2022-09-30 07:44] VITALS: BP 141/69
[2022-09-30 15:12] VITALS: BP 114/78
--- NOTE | 2022-09-30 17:19 | NUR ---
SHIFT SUMMARY PATIENT CONTINUES TO HAVE WORD SALAD. EASILY AXIOUS WHEN CONFUSED OR UNABLE TO GET THOUGHTS OUT CORRECTLY. LUNGS DECREASED IN BASES. ENCOURAGING PATIENT TO COUGH AND DEEP BREATH. PATIENT HAS A HX OF SARCOIDOSIS FOR MANY YEARS AND USES A BIPAP AT HOME. PATIENT NAPPING TODAY AT TIMES. PATIENT ABLE TO WALK THE HALLS WITH STAND BY SUPPORTIVE HELP FOR CUEING ON WHERE TO GO. VISITED. ALSO APPEARS TO BE A LITTLE CONFUSED AND POOR HISTORIAN. PATIENT WAS DRIVING UP TO THIS ADMISSION PER . STATES HE HAS BEEN FORGETFUL FOR SOME TIME BUT RECENTLY INCREASED WHEN HE HAD THE FALLS.
[2022-09-30 19:44] VITALS: BP 120/65
[2022-10-01 04:25] VITALS: BP 171/100
[2022-10-01 04:55] LABS: BASOPHILS ABSOLUTE AUTO 0.02 K/mm3 (0.00-0.23); BASOPHILS PERCENT AUTO 0 % (0-2); EOSINOPHILS ABSOLUTE AUTO 0.33 K/mm3 (0.00-0.68); EOSINOPHILS PERCENT AUTO 5 % (0-6); Hematocrit 37.7 % (37.0-53.0); Hemoglobin 12.3 g/dL (13.5-17.5); IMMATURE GRAN ABSOLUTE AUTO 0.09 K/mm3 (0.00-0.10); IMMATURE GRAN PERCENT AUTO 1 % (0-1); LYMPHOCYTES ABSOLUTE AUTO 0.88 K/mm3 (0.84-5.20); LYMPHOCYTES PERCENT AUTO 14 % (21-46); MONOCYTES PERCENT AUTO 6 % (4-13); Mean Corpuscular HGB 31.2 pg (26.0-34.0); Mean Corpuscular HGB Conc 32.6 g/dL (31.5-36.5); Mean Corpuscular Volume 96 fL (80-100); Mean Platelet Volume 9.2 fL (9.1-12.4); NEUTROPHILS ABSOLUTE AUTO 4.78 K/mm3 (1.96-9.15); NEUTROPHILS PERCENT AUTO 74 % (41-73); Platelet Count 228 K/mm3 (150-400); RDW Coefficient Variation 13.4 % (11.7-14.2); RDW Standard Deviation 46.7 fL (35.1-46.3); Red Blood Cell Count 3.94 M/mm3 (4.30-5.90)
[2022-10-01 05:08] VITALS: BP 116/77
[2022-10-01 05:24] LABS: Albumin, Blood 2.6 g/dL (3.4-5.0); Albumin/Globulin Ratio 0.9 (0.8-1.8); Bilirubin, Total 0.7 mg/dL (0.1-1.0); Bun/Creatinine Ratio 20.8 (12.0-20.0); Calcium, Blood 7.9 mg/dL (8.5-10.1); Creatinine, Blood 1.3 mg/dL (0.60-1.20); Globulin, Blood 2.8 g/dL (2.2-4.0); Potassium, Blood 4.1 mmol/L (3.5-5.5); Total Protein, Blood 5.4 g/dL (6.4-8.2)
[2022-10-01 07:45] VITALS: BP 121/88
--- NOTE | 2022-10-01 16:10 | NUR ---
discharge home Discharge orders recived. alteration manager talking with pt about discharge to [facility] tomorrow. Continue poc.
[2022-10-01 16:33] VITALS: BP 144/77
--- NOTE | 2022-10-01 18:20 | NUR ---
SHIFT NOTE PT UP IN CHAIR AT BEDSIDE FOR MOST OF THE DAY. VSS. HERE AT BEDSIDE. DOUBLE SURFACE OPERATOR ARRANGED DISCHARGE TO SNF ABOUT NOON TOMORROW. FAMILY TO TRANSPORT. ORDERS ARE WROTE. NO ISSUES TODAY. CONTINU POC.
[2022-10-01 19:19] VITALS: BP 141/83
[2022-10-02 04:30] VITALS: BP 124/81
--- NOTE | 2022-10-02 04:35 | NUR ---
SHIFT SUMMARY ADMITTED FOR PNEUMONIA/FREQUENT FALLS. FULL CODE. PLAN IS FOR DC WITH FAMILY TO SNF. NUMEROUS BM'S REPORTED THIS SHIFT. ON RA. REGULAR DIET. 1 ASSIST W/FWW - BRP. NEEDS CONSTANT CUES AND REDIRECTING. A&O X2. CALLS OUT AT TIMES, CAN BE IMPULSIVE AND ATTEMPTS TO EXIT BED WHEN NEEDING TO USE THE BATHROOM. FREQUENCY NOTED.
[2022-10-02 05:12] LABS: BASOPHILS ABSOLUTE AUTO 0.03 K/mm3 (0.00-0.23); BASOPHILS PERCENT AUTO 0 % (0-2); EOSINOPHILS ABSOLUTE AUTO 0.53 K/mm3 (0.00-0.68); EOSINOPHILS PERCENT AUTO 7 % (0-6); Hematocrit 41.2 % (37.0-53.0); Hemoglobin 13.8 g/dL (13.5-17.5); IMMATURE GRAN ABSOLUTE AUTO 0.06 K/mm3 (0.00-0.10); IMMATURE GRAN PERCENT AUTO 1 % (0-1); LYMPHOCYTES ABSOLUTE AUTO 1.15 K/mm3 (0.84-5.20); LYMPHOCYTES PERCENT AUTO 15 % (21-46); MONOCYTES ABSOLUTE AUTO 0.31 K/mm3 (0.16-1.47); MONOCYTES PERCENT AUTO 4 % (4-13); Mean Corpuscular HGB 31.9 pg (26.0-34.0); Mean Corpuscular HGB Conc 33.5 g/dL (31.5-36.5); Mean Corpuscular Volume 95 fL (80-100); Mean Platelet Volume 9.5 fL (9.1-12.4); NEUTROPHILS ABSOLUTE AUTO 5.62 K/mm3 (1.96-9.15); NEUTROPHILS PERCENT AUTO 73 % (41-73); Platelet Count 232 K/mm3 (150-400); RDW Coefficient Variation 13.2 % (11.7-14.2); RDW Standard Deviation 45.4 fL (35.1-46.3); Red Blood Cell Count 4.33 M/mm3 (4.30-5.90)
[2022-10-02 05:57] LABS: Albumin, Blood 2.8 g/dL (3.4-5.0); Albumin/Globulin Ratio 0.9 (0.8-1.8); Bilirubin, Total 1.1 mg/dL (0.1-1.0); Calcium, Blood 8.1 mg/dL (8.5-10.1); Creatinine, Blood 1.16 mg/dL (0.60-1.20); Potassium, Blood 4.2 mmol/L (3.5-5.5); Total Protein, Blood 5.8 g/dL (6.4-8.2)
[2022-10-02 07:53] VITALS: BP 121/76
--- NOTE | 2022-10-02 11:55 | NUR ---
Pt. is awake and sitting in a recliner when he welcomes my visit. Pt. is pleasant but unsettled by how his confusion is having an impact on his family. Listen with great empathy and a calming presence. Pt. displays evidence of being aware of his stuggles and displays evidence of frustration. Pastoral insurance counselor and support is given. Prayed with Pt. Pt. verbalized gratitude for the spiritual care visit.
[2022-10-02] MEDS ORDERED: ACET325 PO (11:57)
[2022-10-02] MEDS ORDERED: ALBU2.5V5 INH (11:57)
[2022-10-02] MEDS ORDERED: FAMO20 PO (11:57)
--- NOTE | 2022-10-02 12:18 | NUR ---
REPORT GIVEN TO SHANNA LEE FOR REST OF SHIFT
--- NOTE | 2022-10-02 13:31 | NUR ---
IV REMOVED, REPORT CALLED TO REHAB FACILITY. PATIENT LEFT UNIT BY WHEELCHAIR WITH FAMILY AND ALL PERSONAL BELONGINGS, INCLUDING CPAP.
== END 2022-10-02 14:00 | DRG 193 ==
LOC: ER 20:08 → MEDS 20:09 → ENPENDDIS 10-02 13:51 → MEDS 10-02 14:00
PROVIDERS: Family Medicine; Hospitalist; Internal Medicine; Physician Assistant; Student in an Organized Health Care Education/Training Program; ADMIT Internal Medicine
PROC: 5A09357 Assistance with Respiratory Ventilation, Less than 24 Consecutive Hours, Continuous Positive Airway Pressure (ICD-10-PCS; principal; 2022-09-27)
DX: J18.9 Pneumonia, unspecified organism (principal); G92.8 Other toxic encephalopathy; J96.01 Acute respiratory failure with hypoxia; N17.9 Acute kidney failure, unspecified; F05 Delirium due to known physiological condition; D86.9 Sarcoidosis, unspecified; E86.0 Dehydration; J45.909 Unspecified asthma, uncomplicated; R59.0 Localized enlarged lymph nodes; R91.1 Solitary pulmonary nodule; F03.90 Unspecified dementia, unspecified severity, without behavioral disturbance, psychotic disturbance, mood disturbance, and anxiety; E04.1 Nontoxic single thyroid nodule; M05.9 Rheumatoid arthritis with rheumatoid factor, unspecified; M19.90 Unspecified osteoarthritis, unspecified site; E78.5 Hyperlipidemia, unspecified; G47.33 Obstructive sleep apnea (adult) (pediatric); K42.9 Umbilical hernia without obstruction or gangrene; Z20.822 Contact with and (suspected) exposure to COVID-19; R29.6 Repeated falls; W06.XXXA Fall from bed, initial encounter; G93.89 Other specified disorders of brain; Z88.2 Allergy status to sulfonamides; Z79.899 Other long term (current) drug therapy; Z87.442 Personal history of urinary calculi; Z88.8 Allergy status to other drugs, medicaments and biological substances; Z99.89 Dependence on other enabling machines and devices
CPT/HCPCS: 0202U; 0241U; 36415; 70450; 71046; 71260; 80048; 80053; 81001; 82607; 82746; 82803; 83735; 83880; 84100; 84145; 84484; 85025; 85027; 85651; 86140; 87040; 93005; 93010; 94640; 94660; 94664; 94760; 94762; 96361; 96365; 96365-59; 96372; 96372-59; 96375; 96375-59; 97110; 97112; 97116; 97129; 97162; 97166; 97530; 97535; 99285-25; A9270; G0378; J0456; J0696; J1650; J1956; J2920; J7030; J7050; J8610; Q9967

== ENCOUNTER → 2022-11-26 | Outpatient (CLI) | payer MEDICARE, OTHER ==
[~2022-11-26] MED LIST changes: +ACET325 PO; +ALBU2.5V5 INH; +FAMO20 PO; +METHOTREXATE2.510 PO; +METTREX2.5 PO; +SIMPONI AR50 MG/4 M1 IV
== END ==
LOC: LAB 18:54 → LAB SHORT 18:54
DX: R31.9 Hematuria, unspecified (principal)
CPT/HCPCS: 87086

== ENCOUNTER 2024-03-18 20:20 | Inpatient (IN) | payer MEDICARE, OTHER ==
[~2024-03-18] VITALS: Ht 175.3 cm; Wt 99.5 kg
[2024-03-18 20:49] LABS: BASOPHILS ABSOLUTE AUTO 0.06 K/mm3 (0.00-0.23); BASOPHILS PERCENT AUTO 1 % (0-2); EOSINOPHILS ABSOLUTE AUTO 0.03 K/mm3 (0.00-0.68); EOSINOPHILS PERCENT AUTO 1 % (0-6); Hematocrit 44.3 % (37.0-53.0); Hemoglobin 15.6 g/dL (13.5-17.5); IMMATURE GRAN ABSOLUTE AUTO 0.02 K/mm3 (0.00-0.10); IMMATURE GRAN PERCENT AUTO 0 % (0-1); LYMPHOCYTES ABSOLUTE AUTO 0.46 K/mm3 (0.84-5.20); LYMPHOCYTES PERCENT AUTO 8 % (21-46); MONOCYTES ABSOLUTE AUTO 0.69 K/mm3 (0.16-1.47); MONOCYTES PERCENT AUTO 11 % (4-13); Mean Corpuscular HGB 33.3 pg (26.0-34.0); Mean Corpuscular HGB Conc 35.2 g/dL (31.5-36.5); Mean Corpuscular Volume 95 fL (80-100); Mean Platelet Volume 9.2 fL (9.1-12.4); NEUTROPHILS ABSOLUTE AUTO 4.88 K/mm3 (1.96-9.15); NEUTROPHILS PERCENT AUTO 80 % (41-73); Platelet Count 149 K/mm3 (150-400); RDW Standard Deviation 44.2 fL (35.1-46.3); Red Blood Cell Count 4.68 M/mm3 (4.30-5.90); White Blood Cell Count 6.14 K/mm3 (4.00-11.30)
[2024-03-18] MEDS ORDERED: Albuterol 2.5 MG/3 ML VIAL INH SCH (21:00)
[2024-03-18] MEDS ORDERED: NS 1,000 ML IV SCH (21:05)
[2024-03-18 21:16] LABS: CORONAVIRUS COVID-19 AG Negative (NEGATIVE); INFLUENZA A AG Negative (NEGATIVE); INFLUENZA B AG Negative (NEGATIVE)
[2024-03-18 21:17] LABS: Albumin, Blood 3.6 g/dL (3.4-5.0); Bilirubin, Total 0.7 mg/dL (0.1-1.0); Bun/Creatinine Ratio 12.1 (12.0-20.0); Calcium, Blood 8.5 mg/dL (8.5-10.1); Creatinine, Blood 1.32 mg/dL (0.60-1.20); Globulin, Blood 3.5 g/dL (2.2-4.0); Potassium, Blood 3.9 mmol/L (3.5-5.5); Total Protein, Blood 7.1 g/dL (6.4-8.2)
[2024-03-18] MEDS ORDERED: CefTRIAXone Sodium 1,000 MG in NS 100 ML IV ONE (22:25)
[2024-03-18] MEDS ORDERED: Azithromycin 500 MG in NS 250 ML IV ONE (22:25)
[2024-03-18] MEDS ORDERED: AZIT500 PO (22:38)
[2024-03-18] MEDS ORDERED: DONEPEZIL HCL10 M1 PO (22:39)
[2024-03-18] MEDS ORDERED: POTASSIUM CITR10 ME2 PO (22:39)
[2024-03-18] MEDS ORDERED: Acetaminophen 325 MG TABLET PO PRN (23:05)
[2024-03-18] MEDS ORDERED: Ipratropium/Albuterol SulF 2.5-0.5MG/3 ML Amp INH SCH (23:05)
[2024-03-18] MEDS ORDERED: Ondansetron HCl 2 MG / ML 2ML Vial IV PRN (23:10)
[2024-03-18] MEDS ORDERED: FLU VACC TS2024-25(6MOS UP)/PF 45 MCG/0.5 ML SYRINGE IM ONE (23:10)
[2024-03-19 00:34] VITALS: BP 152/77
[2024-03-19 01:12] LABS: Base Excess Venous -3.4 mmol/L; Bicarbonate Venous 21.4 mmol/L (24.0-30.0); PCO2 Venous 39.9 mmHg (38-42); pH Blood Venous 7.35 (7.34-7.37)
[2024-03-19] MEDS ORDERED: ASCO500 PO (01:24)
[2024-03-19] MEDS ORDERED: GLUCHON PO (01:26)
[2024-03-19] MEDS ORDERED: Calcium Carbon500 MG PO (01:28)
[2024-03-19 01:39] LABS: BASOPHILS ABSOLUTE AUTO 0.03 K/mm3 (0.00-0.23); BASOPHILS PERCENT AUTO 1 % (0-2); EOSINOPHILS PERCENT AUTO 0 % (0-6); Hematocrit 42.1 % (37.0-53.0); Hemoglobin 14.3 g/dL (13.5-17.5); IMMATURE GRAN ABSOLUTE AUTO 0.02 K/mm3 (0.00-0.10); IMMATURE GRAN PERCENT AUTO 0 % (0-1); LYMPHOCYTES ABSOLUTE AUTO 0.51 K/mm3 (0.84-5.20); LYMPHOCYTES PERCENT AUTO 10 % (21-46); MONOCYTES ABSOLUTE AUTO 0.55 K/mm3 (0.16-1.47); MONOCYTES PERCENT AUTO 10 % (4-13); Mean Corpuscular HGB 32.9 pg (26.0-34.0); Mean Corpuscular Volume 97 fL (80-100); Mean Platelet Volume 9.3 fL (9.1-12.4); NEUTROPHILS ABSOLUTE AUTO 4.25 K/mm3 (1.96-9.15); NEUTROPHILS PERCENT AUTO 79 % (41-73); Platelet Count 124 K/mm3 (150-400); RDW Coefficient Variation 12.9 % (11.7-14.2); RDW Standard Deviation 45.2 fL (35.1-46.3); Red Blood Cell Count 4.34 M/mm3 (4.30-5.90); White Blood Cell Count 5.36 K/mm3 (4.00-11.30)
[2024-03-19 01:57] LABS: Albumin, Blood 3.4 g/dL (3.4-5.0); Albumin/Globulin Ratio 1.1 (0.8-1.8); Bilirubin, Total 0.4 mg/dL (0.1-1.0); Calcium, Blood 8.1 mg/dL (8.5-10.1); Creatinine, Blood 1.38 mg/dL (0.60-1.20); Globulin, Blood 3.1 g/dL (2.2-4.0); Potassium, Blood 3.7 mmol/L (3.5-5.5); Total Protein, Blood 6.5 g/dL (6.4-8.2)
[2024-03-19 03:05] LABS: Adenovirus Not Detected (NOT DETECT); Bordetella pertussis Not Detected (NOT DETECT); Chlamydophila pneumoniae Not Detected (NOT DETECT); Coronavirus 229E Not Detected (NOT DETECT); Coronavirus HKU1 Not Detected (NOT DETECT); Coronavirus NL63 Not Detected (NOT DETECT); Coronavirus OC43 Not Detected (NOT DETECT); Human Metapneumovirus Not Detected (NOT DETECT); Human Rhinovirus/Enterovirus Detected (NOT DETECT); Influenza A/2009-H1 Not Detected (NOT DETECT); Influenza A/H1 Not Detected (NOT DETECT); Influenza A/H3 Not Detected (NOT DETECT); Influenza B Not Detected (NOT DETECT); Mycoplasma pneumoniae Not Detected (NOT DETECT); Parainfluenza Virus 1 Not Detected (NOT DETECT); Parainfluenza Virus 2 Not Detected (NOT DETECT); Parainfluenza Virus 3 Not Detected (NOT DETECT); Parainfluenza Virus 4 Not Detected (NOT DETECT); Respiratory Syncytial Virus Detected (NOT DETECT); SARS-Cov-2 (COVID-19), BioFire Not Detected (NOT DETECT)
[2024-03-19 03:14] VITALS: BP 152/84
--- NOTE | 2024-03-19 03:17 | NUR ---
Pt awoken with significant confusion, did not know he was in the hospital, kept attempting to get OOB by self, and is not steady at all without assist. Pt had removed all monitors, and took CPAP apart. Pt reoriented, put back to bed after repositioning and voiding. Remains confused, CPAP removed, O2 placed @ 2L/NC, O2 sat monitor replaced, sats >90%, VS with elevated BP, potentialy d/t stress. Continent of urine this shift.
[2024-03-19] MEDS ORDERED: Albuterol 2.5 MG/3 ML VIAL INH PRN (04:20)
[2024-03-19 07:54] VITALS: BP 136/70
[2024-03-19] MEDS ORDERED: Potassium Citrate 5 MEQ TABCR PO SCH (08:00)
[2024-03-19] MEDS ORDERED: GuaiFENesin 600 MG TabCR PO SCH ×2 (09:00)
[2024-03-19] MEDS ORDERED: Ascorbic Acid 500 MG Tab PO SCH (09:00)
[2024-03-19] MEDS ORDERED: Enoxaparin 40 MG/0.4 ML SYR SC SCH (09:00)
[2024-03-19] MEDS ORDERED: Calcium Carbonate 500 MG Tab Chew PO SCH (09:00)
[2024-03-19] MEDS ORDERED: Donepezil HCl 5 MG Tab PO SCH (09:00)
[2024-03-19] MEDS ORDERED: GLUCOSAMINE CHONDROITIN PO SCH (09:00)
[2024-03-19] MEDS ORDERED: Lactobacil 2-S.Thermo-Bifido 1 1 Cap PO SCH (09:00)
[2024-03-19] MEDS ORDERED: Folic Acid 1 MG TAB PO SCH (09:00)
[2024-03-19] MEDS ORDERED: AZIT250 PO (12:05)
[2024-03-19 15:17] VITALS: BP 146/82
[2024-03-19 19:58] VITALS: BP 114/91
[2024-03-19] MEDS ORDERED: CefTRIAXone Sodium 1,000 MG in NS 100 ML IV SCH (21:00)
[2024-03-19] MEDS ORDERED: Azithromycin 500 MG in NS 250 ML IV SCH (21:00)
[2024-03-19] MEDS ORDERED: Famotidine 20 MG Tab PO SCH (21:00)
--- NOTE | 2024-03-19 23:51 | NUR ---
0: Pt yelling in room, Blood leaking on floor and bed, Pt pulled LFA IV out, confused, does not take instruction well, continues to get up without assist, does not use call light. Pulled CPAP apart, does not want to wear, states it's too strong, meaning the air is blowing to strong, will leave off, RT notified, This nurse will sign form for Pt since he is not cognitively aware.
[2024-03-20] MEDS ORDERED: Melatonin 5 MG Tablet PO ONE (01:00)
[2024-03-20] MEDS ORDERED: QUEtiapine Fumarate 50 MG TAB PO ONE (01:00)
[2024-03-20 03:15] VITALS: BP 125/99
[2024-03-20 05:17] LABS: Hematocrit 38.8 % (37.0-53.0); Hemoglobin 13.2 g/dL (13.5-17.5); Mean Corpuscular HGB 32.9 pg (26.0-34.0); Mean Corpuscular Volume 97 fL (80-100); Mean Platelet Volume 9.8 fL (9.1-12.4); Platelet Count 110 K/mm3 (150-400); RDW Coefficient Variation 13.1 % (11.7-14.2); RDW Standard Deviation 46.3 fL (35.1-46.3); Red Blood Cell Count 4.01 M/mm3 (4.30-5.90); White Blood Cell Count 4.54 K/mm3 (4.00-11.30)
[2024-03-20 05:36] LABS: BASOPHILS ABSOLUTE MAN 0.04 K/mm3 (0.00-0.23); BASOPHILS PERCENT MAN 1 % (0-2); EOSINOPHILS ABSOLUTE MAN 0.04 K/mm3 (0.00-0.68); EOSINOPHILS PERCENT MAN 1 % (0-6); LYMPHOCYTES % ATYPICAL MANUAL 8 % (0-0); LYMPHOCYTES ABSOLUTE MAN 1.31 K/mm3 (0.84-5.20); LYMPHOCYTES PERCENT MAN 21 % (21-46); MONOCYTES ABSOLUTE MAN 0.54 K/mm3 (0.16-1.47); MONOCYTES PERCENT MAN 12 % (4-13); NEUTROPHILS ABSOLUTE MAN 2.58 K/mm3 (1.96-9.15); SEG NEUTROPHILS PERCENT MAN 57 % (41-73); TOTAL CELLS COUNTED 100
[2024-03-20 05:48] LABS: Bun/Creatinine Ratio 10.4 (12.0-20.0); Calcium, Blood 7.9 mg/dL (8.5-10.1); Creatinine, Blood 1.34 mg/dL (0.60-1.20); Potassium, Blood 3.4 mmol/L (3.5-5.5)
[2024-03-20 08:28] VITALS: BP 115/77
[2024-03-20 15:53] VITALS: BP 120/69
--- NOTE | 2024-03-20 16:11 | NUR ---
PT HAD NO C/O PAIN AD NO CHANGES TODAY. PT HAS NO QUESTIONS OR CONCERNS. AT BEDSIDE ALL DAY.
--- NOTE | 2024-03-20 18:30 | NUR ---
Spiritual Care Spouse SUpport Met spouse on the 2nd floor hallway. Facilitated an update of the Pts. condition. Spouse verbalized that while she was not aware of the physician update, that RT had provided therapy that had a positive affect on the Pt. Spouse verbalized gratitude for the care visits.
[2024-03-20 20:17] VITALS: BP 128/69
[2024-03-20] MEDS ORDERED: NS 250 ML IV PRN (21:20)
--- NOTE | 2024-03-21 04:29 | NUR ---
SHIFT SUMMARY ADMITTED FOR LLL PNEUMONIA/RESPIRATORY FAILURE. FULL CODE. ISOLATION PRECAUTIONS FOR RSV. IV ANTIB RX ARE SCHEDULED. HE IS ON 1-2 LPM O2 DURING THE DAY, CPAP @ HS. CARDIAC DIET. STANDBY ASSIST W/FWW - BRP. I HAVE A BED ALARM ON HE IS IMPULSIVE AND DID EXIT HIS BED. HE GETS CONFUSED @ NIGHT, PER REPORT. THIS SHIFT I WAS ABLE TO REDIRECT HIM BACK TO HIS BED.
[2024-03-21 04:53] VITALS: BP 118/65
[2024-03-21 06:12] LABS: Hematocrit 39.3 % (37.0-53.0); Hemoglobin 13.2 g/dL (13.5-17.5); Mean Corpuscular HGB 32.7 pg (26.0-34.0); Mean Corpuscular HGB Conc 33.6 g/dL (31.5-36.5); Mean Corpuscular Volume 97 fL (80-100); Mean Platelet Volume 10.1 fL (9.1-12.4); Platelet Count 123 K/mm3 (150-400); RDW Coefficient Variation 13.2 % (11.7-14.2); RDW Standard Deviation 46.3 fL (35.1-46.3); Red Blood Cell Count 4.04 M/mm3 (4.30-5.90); White Blood Cell Count 5.71 K/mm3 (4.00-11.30)
[2024-03-21 06:44] LABS: Bun/Creatinine Ratio 12.4 (12.0-20.0); Calcium, Blood 8.5 mg/dL (8.5-10.1); Creatinine, Blood 1.37 mg/dL (0.60-1.20); Potassium, Blood 3.9 mmol/L (3.5-5.5)
[2024-03-21 07:03] LABS: BASOPHILS ABSOLUTE MAN 0.05 K/mm3 (0.00-0.23); BASOPHILS PERCENT MAN 1 % (0-2); EOSINOPHILS ABSOLUTE MAN 0.11 K/mm3 (0.00-0.68); EOSINOPHILS PERCENT MAN 2 % (0-6); LYMPHOCYTES ABSOLUTE MAN 2.11 K/mm3 (0.84-5.20); LYMPHOCYTES PERCENT MAN 37 % (21-46); METAMYELOCYTE ABSOLUTE MAN 0.05 K/mm3 (0.00-0.00); METAMYELOCYTE PERCENT MAN 1 % (0-0); MONOCYTES ABSOLUTE MAN 0.51 K/mm3 (0.16-1.47); MONOCYTES PERCENT MAN 9 % (4-13); NEUTROPHILS ABSOLUTE MAN 2.85 K/mm3 (1.96-9.15); SEG NEUTROPHILS PERCENT MAN 50 % (41-73); TOTAL CELLS COUNTED 100
[2024-03-21 07:40] VITALS: BP 128/81
[2024-03-21] MEDS ORDERED: QUEtiapine Fumarate 50 MG TAB PO ONE (11:55)
[2024-03-21] MEDS ORDERED: GUAI600T33 PO (13:26)
[2024-03-21] MEDS ORDERED: VISBIOME 112.51 EACH PO (13:27)
[2024-03-21] MEDS ORDERED: CEPH500 PO (13:28)
--- NOTE | 2024-03-21 14:16 | NUR ---
DISCHARGE 1200 PT AOX2, SEMI COOPERATIBE, ABLE TO MAKE NEEDS KNOWN. HAS BEEN BEDSIDE SINCE APPROXIMATELY 1100, PT CONDITION HAS GOTTEN WORSE. BREAK NURSE ORDERED SEROQUEL PO, SEEMED TO BE EFFECTIVE. THIS RN WENT OVER DISCHARGE PAPERWORK WITH PT AND , PT SIGNED FORM. IV DC'D BY TRANSFORMER INSPECTOR. TRANSFORMER INSPECTOR WHEELED PT DOWN TO ENTRANCE USING WHEELCHAIR WITH BELONGINGS AND DISCHARGE PAPERWORK IN HAND.
== END 2024-03-21 13:57 | disposition home or self-care (01) | DRG 193 ==
LOC: ER 20:20 → MEDS 20:21 → ER 03-19 00:21 → MEDS 03-19 00:30 → ER 03-19 00:30 → MEDS 03-19 14:06
PROVIDERS: Emergency Medicine; Family Medicine; Student in an Organized Health Care Education/Training Program; ADMIT Student in an Organized Health Care Education/Training Program
DX: J18.9 Pneumonia, unspecified organism (principal); J96.01 Acute respiratory failure with hypoxia; J21.0 Acute bronchiolitis due to respiratory syncytial virus; J45.909 Unspecified asthma, uncomplicated; G47.33 Obstructive sleep apnea (adult) (pediatric); M19.90 Unspecified osteoarthritis, unspecified site; E78.5 Hyperlipidemia, unspecified; D86.9 Sarcoidosis, unspecified; N18.31 Chronic kidney disease, stage 3a; E87.6 Hypokalemia; B97.19 Other enterovirus as the cause of diseases classified elsewhere; Z88.2 Allergy status to sulfonamides; Z88.8 Allergy status to other drugs, medicaments and biological substances; Z79.899 Other long term (current) drug therapy
CPT/HCPCS: 0202U; 36415; 71046; 71260; 80048; 80053; 82803; 83605; 83735; 83880; 84145; 85025; 85379; 87040; 87428-QW; 93005; 93010; 94640; 94644; 94660; 94664; 94762; 96365; 96368; 96372; 99285-25; A9270; G0378; J0456; J0696; J1650; J7030; J7050; Q9967